=== PATIENT | male | born 1995 | race Caucasian/White ===

== ENCOUNTER 2020-06-21 23:47 | Emergency (ER) | payer OTHER ==
[~2020-06-21] VITALS: Ht 177.8 cm; Wt 97.5 kg
[2020-06-21 23:57] VITALS: BP 132/68
--- NOTE | 2020-06-21 23:57 | NUR ---
TO BED AMBULATORY
--- NOTE | 2020-06-22 00:02 | NUR ---
25 y.o male arrives to the ed c.o c/p. pt states c/p started 2 night ago and has radiated to the abdomen. pt difficulty passing stool for x4 days. AAO, VSS, denies SOB. pt reports drinking mag citrate 5hrs ago but now feels like "burning insides" in the abd. c/p feels tight, constricted, at times feels like difficulty taking a deep breath. DENIES N/V/D; SKIN IS PINK/WARM/DRY; AAOX4 WITH EVEN AND STEADY GAIT; LUNGS CLEAR BL; HR EVEN AND REGULAR; PATIENT STATES PAIN OF 4/10 AT THIS TIME; VSS; PATIENT POSITIONED FOR COMFORT; HOB ELEVATED; BEDRAILS UP X2; BED DOWN. ER MD MADE AWARE OF PT STATUS. PMH: diverticulosis, heart murmur, hypertension Allergies: nka
--- NOTE | 2020-06-22 00:06 | NUR ---
EKG PERFORMED AT BEDSIDE. EKG READS SINUS RHYTHM @ 89
--- NOTE | 2020-06-22 00:15 | NUR ---
ERMD at bedside for examination
--- NOTE | 2020-06-22 00:40 | NUR ---
blood work given to baudilio, lab
--- NOTE | 2020-06-22 00:42 | NUR ---
PT taken to CT & X-RAY via wheelchair
[2020-06-22 00:47] LABS: BASOPHILS % (AUTO) 0.5 % (0.0-2.0); EOSINOPHILS # (AUTO) 0.1 K/uL (0-0.4); EOSINOPHILS % (AUTO) 1.3 % (0.0-4.0); HEMATOCRIT 44.9 % (36-52); HEMOGLOBIN 14.8 g/dL (12.0-18.0); LYMPHOCYTES % (AUTO) 38.9 % (20.5-51.1); MEAN CORPUSCULAR HEMOGLOBIN 29 pg (27-31); MEAN CORPUSCULAR HGB CONC 33 g/dL (33-37); MEAN CORPUSCULAR VOLUME 86.1 fL (80-94); MONOCYTES % (AUTO) 9.9 % (1.7-9.3); NEUTROPHILS # (AUTO) 5.1 K/uL (1.8-7.7); NEUTROPHILS % (AUTO) 49.4 % (42.2-75.2); PLATELET COUNT (AUTO) 237 K/uL (140-450); RED BLOOD CELL COUNT(AUTO) 5.21 MIL/uL (4.20-6.10); RED CELL DISTRIBUTION WIDTH 13.1 % (11.6-13.7); WHITE BLOOD COUNT (AUTO) 10.2 K/uL (4.8-10.8)
--- NOTE | 2020-06-22 00:56 | NUR ---
pt back from CT & Xray, pt connected back up to monitor
[2020-06-22 01:00] LABS: ALBUMIN 4.2 g/dL (3.4-5.0); ANION GAP 13.4 (8-16); CARBON DIOXIDE 26.5 mmol/L (21-32); CREATININE 0.8 mg/dL (0.6-1.3); POTASSIUM 3.9 mmol/L (3.5-5.1); TOTAL BILIRUBIN 0.7 mg/dL (0.0-1.0)
--- NOTE | 2020-06-22 01:16 | NUR ---
covering for primary RN Quiana for lunch. pt laying down in semi fowlers. connected to v/s monitor. ao4 [id number]. able to move all extremities freely. does not appear to be in any acute distress.
--- NOTE | 2020-06-22 01:46 | NUR ---
update received by MICHELLE Cheung on pt. pt semi fowlers, aao x4, pt does not seem to be in any distress
[2020-06-22 02:15] VITALS: BP 132/79
--- NOTE | 2020-06-22 02:15 | NUR ---
Patient discharged with v/s stable. Written and verbal after care instructions given and explained. Patient verbalized understanding. Ambulatory with steady gait. D/C IV. ID band removed. All questions addressed prior to discharge. Advised to follow up with PMD.
== END 2020-06-22 02:15 | disposition home or self-care (01) ==
LOC: MED 23:47
DX: R07.9 Chest pain, unspecified (principal); K59.00 Constipation, unspecified
CPT/HCPCS: 36415; 71045; 80053; 83605; 83690; 84484; 85025; 93005; 99285